=== PATIENT | male | born 1990 | race Hispanic/Latino ===

== ENCOUNTER 2020-06-10 12:04 | Emergency (ER) | payer OTHER, SELFPAY | END 2020-06-10 12:33 | disposition home or self-care (01) | LOC: EDH 12:04 | DX: R50.9 Fever, unspecified (principal); R11.0 Nausea; Z20.828 Contact with and (suspected) exposure to other viral communicable diseases ==

== ENCOUNTER → 2021-10-31 | Emergency (ER) | payer OTHER, SELFPAY ==
[~2021-10-31] VITALS: Ht 170.2 cm; Wt 106.6 kg
[2021-10-31 07:53] VITALS: BP 133/68
== END | disposition home or self-care (01) ==
LOC: EDH 06:36
DX: U07.1 COVID-19 (principal)
CPT/HCPCS: 87635; 87804 ×2; 99283; C9803